=== PATIENT | male | born 1955 | race Caucasian/White ===

== ENCOUNTER 2016-05-15 13:53 | Emergency (ER) | payer MEDICAID ==
[2016-05-15 13:57] VITALS: TEMP 97.3
--- NOTE | 2016-05-15 14:20 | DX ---
Right shoulder 2 views at 1339 History: Pain after fall on ice. Comparison: None available. Findings: There is anterior dislocation at the glenohumeral joint. No fracture is identified. The acr omioclavicular and coracoclavicular relationships are normal. Impression: Anterior shoulder dislocation.
[2016-05-15] MEDS ORDERED: ONDANSETRON 4 MG/2 ML VIAL ONE (14:44)
[2016-05-15] MEDS ORDERED: HYDROmorphONE/DILAUDID 1 MG/ML SYR ONE (14:44)
[2016-05-15] MEDS ORDERED: ONDANSETRON 4 MG/2 ML VIAL IVP ONE (14:46)
[2016-05-15] MEDS ORDERED: fentaNYL 100 MCG/2 ML INJ IVP ONE (14:46)
--- NOTE | 2016-05-15 14:46 | EDPHY ---
H & P Time Seen by Provider: 05/15/16 14:35 HPI/ROS: CHIEF COMPLAINT: Right shoulder injury HISTORY OF PRESENT ILLNESS: 61-year-old male complaining of acute right shoulder pain possible dislocation after slipped on ice going down some stairs. No head injury. Only complaint is right shoulder pain injury. No prior history of dislocation or injury. Denies paresthesia. Denies: Head injury, no midline C-spine pain or injury, back pain or injury, chest pain or injury, straddle injury. PRIMARY CARE PROVIDER: REVIEW OF SYSTEMS: A ten point review of systems was performed and is negative with the exception of the items mentioned in the HPI PAST MEDICAL/SURGICAL HISTORY: no anticoagulant use, no relevant medical/ surgical history SOCIAL HISTORY: denies alcohol use at time of incident PHYSICAL EXAM 1) GENERAL: Well-developed, well-nourished, alert and oriented. . 2) HEAD: Normocephalic, atraumatic 3) HEENT: Pupils equal, round, reactive to light bilaterally. 4) NECK: No cervical collar is on. Posterior cervical spine is nontender, no stepoff, no effusion. Full range of motion which does not elicit any midline cervical spine pain, no posterior midline tenderness, no step-off. 5) LUNGS: Clear to auscultation bilaterally, no wheezes, no rhonchi, no retractions. 6) HEART: Regular rate and rhythm, 7) ABDOMEN: No guarding, no rebound, no focal tenderness, no peritoneal signs, no signs of trauma, no ecchymosis 8) MUSCULOSKELETAL: Right upper extremity: Lateral step-off anterior fullness consistent with dislocation. Bilateral deltoid sensation intact equal bilaterally. Distal radial ulnar median nerve function intact. Compartments soft 9) BACK: No midline vertebral tenderness 10) SKIN: No laceration. No abrasion DIFFERENTIAL DIAGNOSIS: In no particular include but limited to fracture, dislocation, compartment syndrome Smoking Status: Never smoked Constitutional: Initial Vital Signs Temperature (C) 36.3 C 05/15/16 13:54 Heart Rate 91 05/15/16 13:54 Respiratory Rate 16 05/15/16 13:54 Blood Pressure 182/95 H 05/15/16 13:54 O2 Sat (%) 95 05/15/16 13:54 O2 Delivery Mode Room Air Allergies/Adverse Reactions: No Known Allergies Allergy (Unverified 05/15/16 13:57) Home Medications: Medication Instructions Recorded oxyCODONE/APAP [Percocet 1 tab PO Q6 #10 tab 05/15/16 5325] MDM/Departure - MDM Diagnostics: Right shoulder 2 views at 1339 History: Pain after fall on ice. Comparison: None available. Findings: There is anterior dislocation at the glenohumeral joint. No fracture is identified. The acromioclavicular and coracoclavicular relationships are normal. Impression: Anterior shoulder dislocation. Dictated By: Tomas Navarro MD Procedures: Procedure: Dislocation reduction. The dislocation of the right shoulder was reduced using traction counter traction technique without complications. Post reduction the patient's neurovascular exam is normal. Post reduction x-ray demonstrates reduction of the joint to the anatomic position. The procedure was performed by myself. Procedure: Splint A sling was applied by ER training technician. After application of the splint I returned and re-examined the patient. The splint was adequately immobilizing the joint and distal to the splint the patient's circulation and sensation were intact. Patient shows no signs of compartment syndrome. Was given orthopedic precautions. Medications Given: Discontinued Medications Ondansetron HCl (Zofran) 4 mg IVP EDNOW ONE Stop: 05/15/16 14:47 Last Admin: 05/15/16 14:48 Dose: 4 mg ED Course/Re-evaluation: This patient is visiting from [facility]. He has been given the name of local orthopedic follow-up however states that he will likely follow up with orthopedic surgeon his hometown. He has been given copies of his x-rays - Depart Disposition: Home, Routine, Self-Care Clinical Impression: Dislocation of right shoulder joint Qualifiers: Encounter type: initial encounter Qualifier Code: (S43.004A) Unspecified dislocation of right shoulder joint, initial encounter Fall from slipping on ice Qualifiers: Encounter type: initial encounter Qualifier Code: (W00.9XXA) Unspecified fall due to ice and snow, initial encounter Condition: Good Instructions: Shoulder Dislocation (ED) Additional Instructions: Return to the ER immediately if you experience discoloration, have worsening pain, numbness, tingling, or any other symptoms that concern you. If you received x-rays in the emergency department today, be advised, that ligamentous , tendon, muscular, and other non-bony injury cannot be fully ruled out. Try to keep your affected extremity elevated above the level of your chest, and keep cold packs on the affected area, for the next 48 hours. Prescriptions: oxyCODONE/APAP 5/325 [Percocet 5/325] 1 tab PO Q6 #10 tab Referrals: Follow-up, with an orthopedic surgeon in your hometown [Other] - As per Instructions Erik Krueger MD [Medical Doctor] - 5-7 days, call for appt. (Dr. Jarocho Davila is an orthopedic surgeon in [place])
[2016-05-15 15:40] VITALS: BP 164/104; PULSE 66; RESP 18; O2SAT 94
--- NOTE | 2016-05-15 16:29 | DX ---
3 Views Right Shoulder. Clinical Indications: Postreduction study; comparison to the prior study performed earlier today at 1 339 hours. Findings: There has been interval reduction of the anterior dislocation. The humeral head is normally located in the glenoid fossa. No fracture is identified. The bone alignment is normal. Impression: Anatomic alignment following reduction of the right shoulder anterior dislocation.
== END 2016-05-15 15:35 | disposition home or self-care (01) ==
PROC: 0RSJXZZ Reposition Right Shoulder Joint, External Approach (ICD-10-PCS; principal; 2016-05-15)
DX: S43.004A Unspecified dislocation of right shoulder joint, initial encounter (principal); W00.0XXA Fall on same level due to ice and snow, initial encounter
CPT/HCPCS: 96374; A4565; J1170; J2405; J3010